=== PATIENT | female | born 1970 | race Caucasian/White ===

== ENCOUNTER 2017-12-10 15:13 | Emergency (ER) | payer OTHER ==
[~2017-12-10] VITALS: Ht 157.5 cm; Wt 64.6 kg
[2017-12-10] MEDS ORDERED: PREDNISONE20 MG PO (16:52)
[2017-12-10] MEDS ORDERED: ZYRTEC10 M2 PO (16:52)
[2017-12-10] MEDS ORDERED: TESSALON PERLE100 MG PO (16:52)
[2017-12-10 17:05] VITALS: BP 142/87
== END 2017-12-10 17:06 | disposition home or self-care (01) ==
LOC: EME 15:13
DX: J20.9 Acute bronchitis, unspecified (principal); J45.909 Unspecified asthma, uncomplicated
CPT/HCPCS: 71046; 99281; 99284; J7512

== ENCOUNTER 2017-12-30 15:42 | Emergency (ER) | payer OTHER ==
[~2017-12-30] VITALS: Ht 157.5 cm; Wt 63.0 kg
[~2017-12-30 15:42] MED LIST: PREDNISONE20 MG PO; TESSALON PERLE100 MG PO; ZYRTEC10 M2 PO
[2017-12-30 16:53] LABS: HEMATOCRIT 37.2 % (36.0-46.0); HEMOGLOBIN 12.3 G/DL (11.9-15.5); MCH 31.4 PG (29.0-34.0); MCHC 33.1 G/DL (30.0-36.0); MCV 94.9 FL (83-99); PLATELET COUNT 450 K/uL (156-360); RBC DIS.WIDTH-CV 13.2 % (11.8-14.6); RBC DIS.WIDTH-SD 45.8 % (39-53); RED BLOOD COUNT 3.92 M/uL (3.80-5.20); WHITE BLOOD COUNT 6.5 K/uL (4.1-10.2)
[2017-12-30 17:00] LABS: CHLORIDE 111 mEq/L (99-109)
[2017-12-30 17:01] LABS: D-DIMER ELISA < 150.00 ng/mLDDU (<230); POTASSIUM 3.7 mEq/L (3.7-5.4); SODIUM 142 mEq/L (136-147)
[2017-12-30 17:02] LABS: GLUCOSE 120 mg/dL (70-99)
[2017-12-30 17:06] LABS: CREATININE 0.9 mg/dL (0.6-1.3); GFR ESTIMATE (CALCULATED) > 59 mL/min/
[2017-12-30 17:07] LABS: UREA NITROGEN (BUN) 12 mg/dL (9-23)
[2017-12-30] MEDS ORDERED: TESSALON PERLE100 MG PO (17:54)
[2017-12-30] MEDS ORDERED: PREDNISONE20 MG PO (17:54)
[2017-12-30 18:22] VITALS: BP 125/76
== END 2017-12-30 18:26 | disposition home or self-care (01) ==
LOC: EME 15:42
PROVIDERS: Nurse Practitioner Family
DX: R05 Cough (principal); J45.909 Unspecified asthma, uncomplicated; Z88.6 Allergy status to analgesic agent; Z85.3 Personal history of malignant neoplasm of breast; Z90.12 Acquired absence of left breast and nipple
CPT/HCPCS: 71046; 80048; 85027; 85379; 94640; 99281; 99283; J7512

== ENCOUNTER 2017-12-31 08:30 | Emergency (ER) | payer OTHER ==
[~2017-12-31] VITALS: Ht 157.5 cm; Wt 65.6 kg
[2017-12-31 08:56] LABS: HEMATOCRIT 36.5 % (36.0-46.0); HEMOGLOBIN 12.1 G/DL (11.9-15.5); MCH 31.3 PG (29.0-34.0); MCHC 33.2 G/DL (30.0-36.0); MCV 94.6 FL (83-99); PLATELET COUNT 479 K/uL (156-360); RBC DIS.WIDTH-CV 13.2 % (11.8-14.6); RBC DIS.WIDTH-SD 45.3 % (39-53); RED BLOOD COUNT 3.86 M/uL (3.80-5.20); WHITE BLOOD COUNT 12.9 K/uL (4.1-10.2)
[2017-12-31 09:07] LABS: ALBUMIN 4.9 g/dL (3.2-4.8); CHLORIDE 112 mEq/L (99-109); SODIUM 140 mEq/L (136-147)
[2017-12-31 09:10] LABS: GLUCOSE 120 mg/dL (70-99); TOTAL PROTEIN 7.9 g/dL (6.4-8.3)
[2017-12-31 09:12] LABS: TOTAL BILIRUBIN 0.3 mg/dL (0.0-1.0)
[2017-12-31 09:13] LABS: ALKALINE PHOSPHATASE 29 IU/L (3-129)
[2017-12-31 09:14] LABS: CREATININE 0.8 mg/dL (0.6-1.3); GFR ESTIMATE (CALCULATED) > 59 mL/min/
[2017-12-31 09:15] LABS: AST (GOT) 19 IU/L (2-34); UREA NITROGEN (BUN) 11 mg/dL (9-23)
[2017-12-31 09:16] LABS: ALT (GPT) 24 IU/L (3-49)
[2017-12-31 09:53] LABS: APPEARANCE CLOUDY ((CLEAR)); BILIRUBIN NEGATIVE; BLOOD NEGATIVE; COLOR AMBER ((YELLOW)); GLUCOSE (STRIP) NEGATIVE; KETONES 5; LEUKOCYTES NEGATIVE; NITRITE NEGATIVE; PROTEIN (STRIP) 30; SPECIFIC GRAVITY 1.025 (1.000-1.030); UROBILINOGEN 0.2 MG/DL (0.2-1.0)
[2017-12-31 09:53] LABS: SERUM ETHYL ALCOHOL < 10 mg/dL
[2017-12-31 10:03] LABS: AMPHETAMINE NEGATIVE (500 ng/mL); BACTERIA 1+ /HPF; BARBITURATES NEGATIVE (200 ng/mL); BENZODIAZEPINES NEGATIVE (150 ng/mL); BUPRENORPHINE NEGATIVE (10 ng/mL); COCAINE NEGATIVE (150 ng/mL); EPITHELIAL CELLS 3+ /HPF; METHADONE NEGATIVE (200 ng/mL); METHAMPHETAMINE NEGATIVE (500 ng/mL); MUCUS 1+ /LPF; OPIATES (MORPHINE) PRESUMPTIVE POSITIVE (100 ng/mL); OXYCODONE NEGATIVE (100 ng/mL); PHENCYCLIDINE NEGATIVE (25 ng/mL); PROPOXYPHENE NEGATIVE (300 ng/mL); RED BLOOD CELLS 0-5 /HPF (0-5); THC CANNABINOIDS NEGATIVE (50 ng/mL); TRICYCLIC ANTIDEPRESSANTS NEGATIVE (300 ng/mL); UCUL ADDED? YES
[2017-12-31 11:01] VITALS: BP 107/67
== END 2017-12-31 11:12 | disposition home or self-care (01) ==
LOC: EME 08:30
PROVIDERS: Nurse Practitioner Family
DX: J45.909 Unspecified asthma, uncomplicated (principal); Z87.891 Personal history of nicotine dependence
CPT/HCPCS: 71046; 80053; 81003; 84999; 85027; 87086; 94640; 99281; 99284; G0480; J7512